=== PATIENT | male | born 1960 | race Caucasian/White ===

== ENCOUNTER → 2017-09-12 09:52 | Outpatient (CLI) | payer MEDICAID, SELFPAY ==
--- NOTE | 2017-09-12 10:00 | ECHOD_ITS ---
Reason For Study: PALPITATIONS Procedure This was a 2D Doppler, Color Flow transthoracic echocardiogram. Exam performed in department. Left Ventricle Normal size and thickness. The estimated ejection fraction is 45 %. Stage 1 diastolic dysfunction. There is mild to moderate global hypokinesis of the left ventricle. Right Ventricle Normal size and thickness. Normal systolic function. Atria Normal left atrium. Normal right atrium. Normal atrial septum. Mitral Valve The mitral valve is structurally normal. No prolapse or stenosis seen. Tricuspid Valve Normal tricuspid valve. Mild (1+) tricuspid valve insufficiency. Right ventricular systolic pressure estimated to be 21 mmHg. Aortic Valve Normal aortic valve. Trisinus/trileaflet aortic valve. Pulmonic Valve Normal pulmonic valve. Great Vessels Normal aortic root. Normal arch. Normal inferior vena cava. Inferior vena cava collapse with sniff. Pericardium/Pleural No pericardial effusion. MMode/2D Measurements & Calculations LVIDd: 4.9 cm IVSd: 0.75 cm LA dimension: 3.2 cm LVIDs: 3.9 cm LVPWd: 0.85 cm RVDd: 3.4 cm FS: 20.0 % LAV(MOD-bp): 29.5 ml LA A4 area: 10.2 cm2 RA A4 area: 9.6 cm2 LAV(MOD-bp) Indexed: 15.8 ml/m2 LAV(MOD-sp2): 41.3 ml LAV(MOD-sp4): 18.9 ml Doppler Measurements & Calculations MV E max dannie: 56.8 cm/sec Ao V2 max: 96.2 cm/sec LV V1 max: 89.6 cm/sec MV A max dannie: 47.1 cm/sec Ao max P.7 mmHg LV V1 max P.2 mmHg MV E/A: 1.2 PA V2 max: 96.1 cm/sec TR max dannie: 206.5 cm/sec TR max P.1 mmHg Interpretation Summary The estimated ejection fraction is 45 %. Stage 1 diastolic dysfunction. There is mild to moderate global hypokinesis of the left ventricle. Mild (1+) tricuspid valve insufficiency. Right ventricular systolic pressure estimated to be 21 mmHg. There is no comparison study available. Ordering Physician: Jared Gonzalez Referring Physician: [facility] Gloria Calle Performed By: Juana Piedra, CONNIE, RVT
== END ==
PROVIDERS: Family Provider Nurse Practitioner Family; PCP Nurse Practitioner Family; Visit Provider Internal Medicine Cardiovascular Disease
DX: R00.2 Palpitations (principal); Z72.0 Tobacco use
CPT/HCPCS: 93306

== ENCOUNTER → 2017-10-05 13:16 | Outpatient (CLI) | payer MEDICAID, SELFPAY ==
--- NOTE | 2017-10-05 13:17 | STE_ITS ---
Reason For Study: Chest Pain Stress Results Protocol: Jamie Protocol Maximum Predicted HR: 164 bpm Target HR: 139 bpm% Max imum Predicted HR: 101 % DurationHeart Rate Stage (mm:ss) (bpm) BP Baseline 66 138/94 Jamie Protocol Stage I 3:00 13 0 148/90 Jamie Protocol Stage II 3:00 16 6 172/92 Recovery 90 128/86 Stress Duration: 6:00 mm:ss Maximum Stress HR: 166 bpmM ETS: 7 Baseline Echocardiogram Findings The estimated ejection fraction is 65 %. Stress Echo Wall motion Data Resting WMIntermediate WMStress WM Resting Wall Motion Wall Motion Stress No regional wall motion No regional wall motion abnormalities noted. abnormalities noted. EKG Data Normal intervals are noted. The patient exercised according to the regular Jamie protocol for a total duration of 6:00. The maximum heart rate attained was 166 beats per minute. This was 101% of maximum predicted heart rate. The patient exercised into stage 3 of the Jamie protocol. During stress, there were no ST or T wave changes noted to suggest ischemia. No clinical angina was noted. Interpretation Summary The estimated ejection fraction is 65 %. Normal adequate treadmill echocardiogram. Negative for ischemia by EKG and echocardiographic criteria. No anginal symptoms noted. Rare PACs and PVCs during exercise. Appropriate blood pressure response to exercise. Below average exercise capacity for age. Final LVEF is 75%. Test terminated due to dyspnea. Patient tolerated procedure well. No complications. Ordering Physician: Jared Gonzalez Referring Physician: [facility] [place] Performed By: Juana Piedra, CONNIE, RVT
== END ==
PROVIDERS: Visit Provider Internal Medicine Cardiovascular Disease
DX: R07.9 Chest pain, unspecified (principal); R00.2 Palpitations; I42.9 Cardiomyopathy, unspecified; E04.1 Nontoxic single thyroid nodule; Z72.0 Tobacco use
CPT/HCPCS: 93017; 93350

== ENCOUNTER 2017-10-13 08:49 | Emergency (ER) | payer MEDICAID, SELFPAY ==
[2017-10-13 08:50] VITALS: BP 129/89; PULSE 76; RESP 14; TEMP 37.5; O2SAT 100; BMI 23.8
--- NOTE | 2017-10-13 09:08 | EKG12_ITS ---
Test Reason : CP Blood Pressure : / mmHG Vent. Rate : 067 BPM Atrial Rate : 067 BPM P-R Int : 168 ms QRS Dur : 090 ms QT Int : 382 ms P-R-T Axes : 067 044 052 degrees QTc Int : 403 ms Normal sinus rhythm with sinus arrhythmia Normal ECG Confirmed by RODO MELO, SANGITA ([id number]), art editor CHAS GARCIA ([id number]) on 10/16/2017 3:53:00 PM Referred By: BROOKE Confirmed By:SANGITA KOEHLER MD
[2017-10-13 09:17] LABS: Absolute Lymphocyte Count 1.35 X10^3/ul (0.83-4.51); Absolute Neutrophil Count 3.5 X10^3/uL (2.0-7.7); Basophil# 0.04 X10^3/uL; Basophil% 0.7 % (0-1); Eosinophil# 0.33 X10^3/uL; Eosinophils% 5.7 % (0-5); Hematocrit 47.1 % (40-54); Hemoglobin 16.1 g/dl (13.0-16.5); Lymphocyte # 1.35 X10^3/ul (4.0); Lymphocyte % 23.4 % (19-41); Mean Corp Hgb Conc 34.2 g/gl (32-36); Mean Corpuscular Hgb 29.7 pg (27.0-32.0); Mean Corpuscular Volume 86.9 fL (80-94); Mean Platelet Vol. 11.7 fl (6.2-12.0); Monocyte# 0.51 X10^3/uL; Monocyte% 8.8 % (0-10); Neutrophil # 3.54 X10^3/uL (2.7-7.7); Neutrophil % 61.2 % (47-70); POSITIVE COUNT NO; POSITIVE DIFFERENTIAL NO; POSITIVE MORPHOLOGY NO; Platelet Count 138 K/mm3 (150-450); RBC Distribution Width CV 13.4 % (11.6-14.6); RBC Distribution Width SD 42.3 fl (35.1-43.9); Red Blood Count 5.42 M/mm3 (4.6-6.2); White Blood Count 5.8 K/mm3 (4.4-11.0)
[2017-10-13 09:19] VITALS: O2SAT 100
[2017-10-13] MEDS: Aspirin 81 MG TAB.CHEW 324 MG PO (09:21)
[2017-10-13] MEDS: 0.9% Normal Saline 1,000 ML 150 ML IV (09:22)
[2017-10-13 09:35] LABS: Anion Gap 9 (5-15); BUN 15 mg/dL (7-18); BUN/Creat Ratio 15.5 RATIO (10-20); Chloride 105 mmol/L (98-107); Creatinine, Serum 0.97 mg/dL (0.70-1.30); EST Glomerular Filtration Rate 85 mL/min (>60); Est Glom Filt Rate - Afr Amer 103 mL/min (>60); Estimated Creatinine Clearance 82.27 ml/min; Glucose 95 mg/dL (74-106); Potassium 3.2 mmol/L (3.5-5.1); Sodium Level 140 mmol/L (136-145)
--- NOTE | 2017-10-13 09:42 | ED.RN ---
PT REFUSED HIS XRAY STATING HE IS CONCERNED THAT THE RADIATION WILL CAUSE PROBLEMS WITH HIS THYROID. HE HAS READ THAT IT CAN DO THAT. PHYSICIAN IS AWARE
[2017-10-13 10:09] VITALS: BP 131/84; PULSE 61; RESP 15; O2SAT 100
[2017-10-13 10:55] LABS: AST(SGOT) 24 U/L (15-37); Alanine Aminotransfer ALT/SGPT 35 U/L (16-61); Albumin, Serum 3.8 g/dL (3.2-5.0); Alkaline Phosphatase 89 U/L (45-117); Bilirubin, Direct 0.09 mg/dL (0.00-0.30); Globulin 3.5 g/dL (2.2-4.2); Protein, Total 7.3 g/dL (6.4-8.2)
[2017-10-13 11:23] VITALS: BP 127/87; PULSE 58; RESP 16; O2SAT 100
--- NOTE | 2017-10-13 11:45 | ED.DCSUM_ITS ---
- ER Visit Summary Date of Service: 10/13/17 Chief Complaint: [Chest pain and palpitations] History of Present Illness: The patient is a 57 M [presents to the emergency department with complaint of 2 day history of palpitations and chest discomfort. Patient states oftentimes she will wake up in the morning with a pressure between her shoulder blades and if he stretches that causes him to have palpitations makes him feel lightheaded and dizzy. Patient's had similar symptoms for the last several months and has worn a Holter monitor for 30 days which apparently showed some PACs and PVCs. Patient also had a stress echo on 223 which was normal. Patient states he does not have another follow-up appointment with cardiology until March. Patient denies family history of heart disease. Patient has not had any diagnosed cardiac disease otherwise. Patient denies recent travel or surgery. States that he has a medical book that he has been reading that makes him concerned about having some sort of this arrhythmia that could be life-threatening. Also does describe some exertional dyspnea at times. Patient also concerned about possibility of Lyme disease because he was bitten by a tick a year ago. Also concerned that the symptoms may be related to his gallbladder as he has had intermittent abdominal discomfort that migrates. Patient has had alternating constipation and diarrhea.] Physical Examination: [HEENT-PERRLA, EOMI. Cranial nerves II through XII grossly intact. TMs clear. Mucous membranes moist. No adenopathy. Cardiovascular-regular rate and rhythm without murmur or ectopy Lungs-clear to auscultation, chest wall stable without crepitus or subcu emphysema Abdomen-normoactive bowel sounds, soft, nontender, no rebound or rigidity, no peritoneal signs. Extremities-intact ?4, normal range of motion, normal pulses, atraumatic] Test Results: [EKG obtained arrival showed a sinus rhythm with a ventricular rate of 67 bpm with no acute ST segment changes. Patient had occasional PACs noted. CBC with it was normal. Chemistry showed a slightly depressed potassium at 3.2 for which I did write for 40 mEq of potassium chloride p.o. Troponin was less than 0.02. Chest x-ray was refused by the patient as he states he has had multiple chest x-rays and does not want another one.] Emergency Department Course and Treatment: [Patient case was discussed with Dr. Llamas who asked that we do a delta troponin and if negative have patient follow- up as an outpatient with Dr. Gonzalez's office. The troponin was drawn however patient states that his ride has to leave and patient wishes to be discharged. At this point I do not feel the patient is having acute coronary syndrome therefore he will be discharged advised to follow-up with Dr. Gonzalez. I suspect there is a component of anxiety which the patient agrees may be the case.] Treatment Plan: [Patient to follow-up with cardiology. Patient will be given a prescription for Ativan as needed.] Disposition: [Discharged to home in stable condition. Patient advised to return if worsening symptoms.] Impression: [Chest pain-etiology uncertain Palpitations Anxiety] This note was generated with [employer] dictation software. It may contain incorrect words, spelling, and punctuation that were not noted in review of the chart prior to signing ED Disposition - Plan for ED Patient: Chief Complaint: Chest Pain Referrals: Caroline Calle,Gloria De La Fuente [Primary Care Provider] -
--- NOTE | 2017-10-13 11:46 | ED.DEP ---
ED Disposition - Plan for ED Patient: Chief Complaint: Chest Pain Instructions: ED Chest Pain Atypical Unkn Cause, ED Stress React, ED Palpitations Prescriptions: Lorazepam [Ativan] 1 mg PO TID PRN #10 tab PRN Reason: Anxiety Referrals: Gloria Mendoza [Primary Care Provider] - Jared Gonzalez MD [STAFF PHYSICIAN] - 5-7 Days
[2017-10-13 12:00] VITALS: BP 130/87; BP 130/93; PULSE 59; RESP 16; O2SAT 100
== END 2017-10-13 12:03 | disposition home or self-care (01) ==
LOC: ED 09:32
PROVIDERS: Emergency Provider Emergency Medicine
DX: R07.9 Chest pain, unspecified (principal); R00.2 Palpitations; F41.9 Anxiety disorder, unspecified; E87.6 Hypokalemia; I49.3 Ventricular premature depolarization; Z87.891 Personal history of nicotine dependence
CPT/HCPCS: 36415; 80048; 80076; 84484; 85025; 93005; 96360; 96361; 99284; A4216

== ENCOUNTER 2017-10-15 11:52 | Emergency (ER) | payer MEDICAID, SELFPAY ==
[2017-10-15 11:53] VITALS: BP 129/88; PULSE 64; RESP 14; TEMP 36.4; O2SAT 100; BMI 23.9
--- NOTE | 2017-10-15 12:19 | EKG12_ITS ---
Test Reason : CP Blood Pressure : / mmHG Vent. Rate : 066 BPM Atrial Rate : 066 BPM P-R Int : 164 ms QRS Dur : 088 ms QT Int : 396 ms P-R-T Axes : 071 046 066 degrees QTc Int : 415 ms Normal sinus rhythm Normal ECG Confirmed by RODO MELO, SANGITA ([id number]), publication editor CHAS GARCIA ([id number]) on 10/16/2017 2:29:46 PM Referred By: GERALDINE/MANISHA Confirmed By:SANGITA KOEHLER MD
--- NOTE | 2017-10-15 12:23 | ED.VISSUMM ---
- ER Visit Summary Date of Service: 10/15/17 Chief Complaint: Chest pain, palpitations History of Present Illness: The patient is a 57 M presenting with chest pain, palpitations. Patient states that this began approximately an hour ago. He states he had a euphoria come over him. He states he developed pain in his abdomen that went into his chest. He complains of palpitations. He was seen in the ED 3 days ago for similar complaints. He states the palpitations have been persistent since that time. Denies caffeine use. He states he has had multiple ED visits for chest pain. He had a stress echo on October 05, 2017 which was unremarkable. He was diagnosed with anxiety. He was given a prescription for Ativan but has not taken it as he states he was scared to take this medication. He is a former smoker. History of hyperlipidemia. Denies PE/DVT risk factors. Physical Examination: Vitals are stable. Patient is afebrile. Alert no acute distress. HEENT exam is unremarkable. Neck is supple. Lungs are clear and equal bilaterally. Heart is regular rate and rhythm. Abdomen is soft nontender nondistended. No guarding or rebound. Extremities are unremarkable. Skin is warm and dry. No focal neurologic deficit. Anxious Remainder of exam is unremarkable. Emergency Department Course and Treatment: EKG is sinus rhythm rate of 66 unchanged from previous. CBC chemistries unremarkable. Lipase is normal. Troponin is negative. D-dimer is normal. TSH is normal. Repeat troponin was also normal. Patient took his home dose of Ativan while in the emergency department with improvement. He declined chest x-ray. He is resting comfortably in the ED. He is advised to follow-up with his primary care physician. Advised return to ED if worsening complaints. Disposition: Discharge home Impression: Atypical chest pain, palpitations This note was generated with [employer] dictation software. It may contain incorrect words, spelling, and punctuation that were not noted in review of the chart prior to signing ED Disposition - Plan for ED Patient: Chief Complaint: Chest Pain Referrals: Gloria Mendoza [NON-STAFF] -
--- NOTE | 2017-10-15 12:27 | ED.DCSUM_ITS ---
- ER Visit Summary Date of Service: 10/15/17 Chief Complaint: Chest pain, palpitations History of Present Illness: The patient is a 57 M presenting with chest pain, palpitations. Patient states that this began approximately an hour ago. He states he had a euphoria come over him. He states he developed pain in his abdomen that went into his chest. He complains of palpitations. He was seen in the ED 3 days ago for similar complaints. He states the palpitations have been persistent since that time. Denies caffeine use. He states he has had multiple ED visits for chest pain. He had a stress echo on October 05, 2017 which was unremarkable. He was diagnosed with anxiety. He was given a prescription for Ativan but has not taken it as he states he was scared to take this medication. He is a former smoker. History of hyperlipidemia. Denies PE/ DVT risk factors. Physical Examination: Vitals are stable. Patient is afebrile. Alert no acute distress. HEENT exam is unremarkable. Neck is supple. Lungs are clear and equal bilaterally. Heart is regular rate and rhythm. Abdomen is soft nontender nondistended. No guarding or rebound. Extremities are unremarkable. Skin is warm and dry. No focal neurologic deficit. Anxious Remainder of exam is unremarkable. Emergency Department Course and Treatment: EKG is sinus rhythm rate of 66 unchanged from previous. CBC chemistries unremarkable. Lipase is normal. Troponin is negative. D-dimer is normal. TSH is normal. Repeat troponin was also normal. Patient took his home dose of Ativan while in the emergency department with improvement. He declined chest x-ray. He is resting comfortably in the ED. He is advised to follow-up with his primary care physician. Advised return to ED if worsening complaints. Disposition: Discharge home Impression: Atypical chest pain, palpitations This note was generated with [employer] dictation software. It may contain incorrect words, spelling, and punctuation that were not noted in review of the chart prior to signing ED Disposition - Plan for ED Patient: Chief Complaint: Chest Pain Referrals: Gloria Mendoza [NON-STAFF] -
[2017-10-15 12:30] LABS: Absolute Neutrophil Count 2.6 X10^3/uL (2.0-7.7); Eosinophil# 0.24 X10^3/uL; Eosinophils% 4.8 % (0-5); Hematocrit 45.8 % (40-54); Hemoglobin 15.9 g/dl (13.0-16.5); Lymphocyte % 33.9 % (19-41); Mean Corp Hgb Conc 34.7 g/gl (32-36); Mean Corpuscular Hgb 29.6 pg (27.0-32.0); Mean Corpuscular Volume 85.3 fL (80-94); Mean Platelet Vol. 12.1 fl (6.2-12.0); Monocyte# 0.41 X10^3/uL; Monocyte% 8.2 % (0-10); Neutrophil # 2.56 X10^3/uL (2.7-7.7); Neutrophil % 50.9 % (47-70); Platelet Count 147 K/mm3 (150-450); RBC Distribution Width CV 13.4 % (11.6-14.6); RBC Distribution Width SD 41.6 fl (35.1-43.9); Red Blood Count 5.37 M/mm3 (4.6-6.2)
[2017-10-15] MEDS: 0.9% Normal Saline 1,000 ML 1000 ML IV (12:30)
[2017-10-15 12:32] LABS: POSITIVE COUNT NO; POSITIVE DIFFERENTIAL NO; POSITIVE MORPHOLOGY NO
[2017-10-15 12:43] LABS: D-Dimer Quantitative (DVT/PE) 0.28 FEU/ug/m (0.27-0.49)
[2017-10-15 12:48] LABS: Anion Gap 9 (5-15); BUN 19 mg/dL (7-18); BUN/Creat Ratio 19.7 RATIO (10-20); Calcium,Total 9.5 mg/dL (8.5-10.1); Chloride 108 mmol/L (98-107); Creatinine, Serum 0.97 mg/dL (0.70-1.30); EST Glomerular Filtration Rate 85 mL/min (>60); Est Glom Filt Rate - Afr Amer 103 mL/min (>60); Estimated Creatinine Clearance 85.03 ml/min; Glucose 91 mg/dL (74-106); Lipase 179 U/L (73-393); Potassium 3.5 mmol/L (3.5-5.1); Sodium Level 140 mmol/L (136-145); Thyroid Stim Hormone (TSH) 1.84 uIU/mL (0.358-3.74)
[2017-10-15 13:13] VITALS: BP 133/86; PULSE 70; RESP 17; O2SAT 100
[2017-10-15 14:00] VITALS: BP 139/79; PULSE 63; RESP 15; O2SAT 99
[2017-10-15 17:00] VITALS: BP 120/87; PULSE 72; RESP 21; O2SAT 95
--- NOTE | 2017-10-15 17:01 | ED.DEP ---
ED Disposition - Plan for ED Patient: Chief Complaint: Chest Pain Instructions: ED Chest Pain Atypical Unkn Cause Referrals: Gloria Mendoza [NON-STAFF] -
== END 2017-10-15 17:11 | disposition home or self-care (01) ==
LOC: ED 12:31
PROVIDERS: Emergency Provider Emergency Medicine; Family Provider Nurse Practitioner Family; PCP Nurse Practitioner Family
DX: R07.89 Other chest pain (principal); R00.2 Palpitations; F41.9 Anxiety disorder, unspecified; Z87.891 Personal history of nicotine dependence; Z79.899 Other long term (current) drug therapy
CPT/HCPCS: 80048; 83690; 84443; 84484; 85025; 85379; 93005; 96360; 99284; A4216

== ENCOUNTER → 2017-10-19 10:12 | Outpatient (CLI) | payer MEDICAID, SELFPAY ==
[2017-10-19 11:36] LABS: Anion Gap 5 (5-15); BUN 12 mg/dL (7-18); BUN/Creat Ratio 11.9 RATIO (10-20); Calcium,Total 8.9 mg/dL (8.5-10.1); Chloride 110 mmol/L (98-107); Creatinine, Serum 1.01 mg/dL (0.70-1.30); EST Glomerular Filtration Rate 81 mL/min (>60); Est Glom Filt Rate - Afr Amer 98 mL/min (>60); Glucose 84 mg/dL (74-106); Magnesium 2.2 mg/dL (1.6-2.6); Potassium 3.8 mmol/L (3.5-5.1); Sodium Level 142 mmol/L (136-145)
== END ==
PROVIDERS: Family Provider Nurse Practitioner Family; PCP Nurse Practitioner Family; Visit Provider Internal Medicine Cardiovascular Disease
DX: E04.1 Nontoxic single thyroid nodule (principal); R07.9 Chest pain, unspecified; I42.9 Cardiomyopathy, unspecified; R00.2 Palpitations; Z72.0 Tobacco use
CPT/HCPCS: 36415; 80048; 83735

== ENCOUNTER 2017-10-20 12:20 | Emergency (ER) | payer MEDICAID, SELFPAY ==
[2017-10-20 12:21] VITALS: BP 128/87; PULSE 67; RESP 16; TEMP 36.9; O2SAT 100; BMI 23.8
[2017-10-20 12:33] VITALS: BP 139/90; PULSE 64; RESP 22; O2SAT 100
--- NOTE | 2017-10-20 12:47 | EKG12_ITS ---
Test Reason : PALPITATIONS Blood Pressure : / mmHG Vent. Rate : 065 BPM Atrial Rate : 065 BPM P-R Int : 158 ms QRS Dur : 088 ms QT Int : 396 ms P-R-T Axes : 040 021 033 degrees QTc Int : 411 ms Normal sinus rhythm Normal ECG Confirmed by SANGITA KOEHLER MD ([id number]), manager editorial CHAS GARCIA ([id number]) on 10/22/2017 3:04:40 PM Referred By: Confirmed By:SANGITA KOEHLER MD
--- NOTE | 2017-10-20 12:50 | RAD_ITS ---
STUDY: X-RAY CHEST REASON FOR EXAM: Male, 57 years old. Palpitations. TECHNIQUE: Single AP portable view of the chest. COMPARISON: September 05, 2017. FINDINGS: Cardiac monitoring leads are present. The lungs are clear and expanded. There is no demonstrated pleural abnormality. Normal size heart. Normal mediastinum and katie. There is prominence of the pulmonary hilar arteries without peripheral pulmonary vascular congestion. There is atherosclerotic calcification of the aortic arch with tortuosity. Normal visualized thoracic spine. Normal visualized ribs, clavicles, and shoulders. There is no demonstrated abnormality of the visualized soft tissue structures of the upper abdomen. RAD/Chest 1 View (Portable) IMPRESSION: No radiographic evidence of acute cardiopulmonary disease. Electronically Signed: Carolina Tinajero MD at 13:22 EST , Service support ,
[2017-10-20] MEDS: Aspirin 81 MG TAB.CHEW 324 MG PO (13:07)
[2017-10-20 13:23] LABS: Absolute Neutrophil Count 2.8 X10^3/uL (2.0-7.7); Basophil# 0.03 X10^3/uL; Basophil% 0.6 % (0-1); Eosinophils% 6.4 % (0-5); Hematocrit 45.5 % (40-54); Hemoglobin 15.6 g/dl (13.0-16.5); Lymphocyte % 25.5 % (19-41); Mean Corp Hgb Conc 34.3 g/gl (32-36); Mean Corpuscular Hgb 29.7 pg (27.0-32.0); Mean Corpuscular Volume 86.7 fL (80-94); Mean Platelet Vol. 11.8 fl (6.2-12.0); Monocyte% 8.5 % (0-10); Neutrophil # 2.77 X10^3/uL (2.7-7.7); Platelet Count 170 K/mm3 (150-450); RBC Distribution Width CV 13.3 % (11.6-14.6); Red Blood Count 5.25 M/mm3 (4.6-6.2); White Blood Count 4.7 K/mm3 (4.4-11.0)
[2017-10-20 13:25] LABS: POSITIVE COUNT NO; POSITIVE DIFFERENTIAL NO; POSITIVE MORPHOLOGY NO
[2017-10-20 13:41] LABS: Anion Gap 7 (5-15); BUN 10 mg/dL (7-18); BUN/Creat Ratio 11.4 RATIO (10-20); Calcium,Total 8.9 mg/dL (8.5-10.1); Chloride 109 mmol/L (98-107); Creatinine, Serum 0.88 mg/dL (0.70-1.30); EST Glomerular Filtration Rate 95 mL/min (>60); Est Glom Filt Rate - Afr Amer 116 mL/min (>60); Estimated Creatinine Clearance 90.68 ml/min; Glucose 77 mg/dL (74-106); Sodium Level 141 mmol/L (136-145)
[2017-10-20 14:36] VITALS: BP 121/83; PULSE 63; RESP 18; O2SAT 98
--- NOTE | 2017-10-20 15:11 | ED.VISSUMM ---
- ER Visit Summary Date of Service: 10/20/17 Chief Complaint: [] Chest palpitations History of Present Illness: The patient is a 57 M [] ending of palpitations beginning prior to arrival. Patient feels like had a low heart rate. Reports she has had palpitations since last May. He reports he has a scheduled angioplasty with Dr. Gonzalez in 4 days. He denies any chest pain. In review of his records he has been here numerous times for similar symptoms. He does report a history of panic attacks but does appear anxious today however he denies that the symptoms are related to a panic attack. Denies shortness of breath. Denies abdominal pain. Denies fevers. Reports he has a normal stress echo in the last year. Physical Examination: [] Afebrile, vital signs stable. Cardiovascular exam is regular rate and rhythm. Lungs are clear to auscultation. Abdomen is soft and nontender. No lower extremity edema. Test Results: [] Chest x-ray negative. EKG shows normal sinus rhythm rate of 65 without ischemia or ectopy. Unchanged from previous EKG. CBC, BMP, troponin normal. Emergency Department Course and Treatment: [] Patient evaluated for palpitations and no obvious or life-threatening etiology was identified. I encourage the patient to keep his scheduled intervention with Dr. Gonzalez and return if symptoms worsen/recur. Treatment Plan: [] Follow-up with cardiology. Disposition: [] Discharge, stable. Impression: [] Palpitations This note was generated with [employer] dictation software. It may contain incorrect words, spelling, and punctuation that were not noted in review of the chart prior to signing ED Disposition - Plan for ED Patient: Chief Complaint: Palpitations Referrals: Lianey Ag NP-C [Primary Care Provider] -
--- NOTE | 2017-10-20 15:14 | ED.DEP ---
ED Disposition - Plan for ED Patient: Disposition: Home or Assisted Living Chief Complaint: Palpitations Instructions: ED Palpitations Referrals: Lainey Ag NP-Machelle [Primary Care Provider] - Jared Gonzalez MD [STAFF PHYSICIAN] -
[2017-10-20 15:16] VITALS: BP 117/81; PULSE 58; RESP 16; O2SAT 98
--- NOTE | 2017-10-20 15:22 | ED.RN ---
support provided to pt regarding keeping procedure for sunday. did not talk to Dr. Gonzalez at this time. informed pt we are here at all times with any HR concerns he can be seen.
== END 2017-10-20 15:25 | disposition home or self-care (01) ==
PROVIDERS: Emergency Provider Emergency Medicine; Family Provider Nurse Practitioner Family; PCP Nurse Practitioner Family
DX: R00.2 Palpitations (principal); F41.0 Panic disorder [episodic paroxysmal anxiety]; Z72.0 Tobacco use; Z79.899 Other long term (current) drug therapy
CPT/HCPCS: 71045; 80048; 84484; 85025; 93005; 99285; A4216

== ENCOUNTER → 2017-10-24 08:28 | Day surgery (SDC) | payer MEDICAID, SELFPAY ==
[2017-10-23 11:31] VITALS: BMI 23.9
--- NOTE | 2017-10-24 12:42 | CL.D_ITS ---
Patient Name: LOYD GUDINO Study Date: 10/24/2017 Performing: Loyd Gonzalez MD Ht: 68.89 inches 175 cm : 1960 Wt: 160.94 lbs 73 kg Age: 57 Gender: male BSA: 1.88 PROCEDURE(S) PERFORMED AB26-TPE/COR/LV CLINICAL PROFILE AND INDICATIONS INDICATIONS: Chest-Pain syndrome with equivocal non-invasive testing Stress/Imaging Stress Echocardiogram: Yes Result: NegativeStress Echocardiogram: Negative Angina Classification Anginal Classification w/in 2 Weeks: CCS IV CAD Presentations: Symptom unlikely to be ischemic. Comorbidities/Risk Factors: Current/Recent Smoker (< 1year) Cerebrovascular Disease CONCLUSIONS Normal coronary arteries Normal LV size, wall motion,and systolic function RECOMMENDATIONS d/c plavix, manual sheath removal, start inderal LA 60mg po daily for palps, atypical CP and anxiety. DESCRIPTION OF PROCEDURE The patient arrived to the procedure lab. The risks and benefits of the procedure as well as a full d escription of our services here and current unavailability of surgical backup were fully explained to the patient and/or their significant other prior to the catheterization. The Timeout was completed, verifying the correct patient and procedure. The patient's procedural site was prepped and draped in the usual fashion. Local anesthetic was given subcutaneously to right groin region with Lidocaine 2%. Using a modified Seldinger technique, arterial access was obtained via the right femoral artery, a 4 Fr sheath was inserted Left Coronary Artery selective angiography was performed in multiple views us ing a 4 Fr. JL5 catheter. Right Coronary Artery selective angiography was then performed in multiple views using a 4 Fr. 3DRC catheter. Left Ventriculography was performed in MARTINEZ projection using a 4 Fr . Pigtail catheter. LV to AO pullback pressures were then recorded.The arterial sheath was pulled and manual compression applied until hemostasis is achieved. CORONARY ANGIOGRAPHY DOMINANCE: Left Dominant LEFT HEART ASSESSMENT Left Ventricular Ejection Fraction: by LV Gram 65 % Normal LV wall motion Normal Left Ventricular systolic function Normal Left Ventricular systolic function Normal Left Ventricular End Diastolic Pressure LEFT MAIN: Angiographically normal LEFT ANTERIOR DECENDING ARTERY: Angiographically normal CIRCUMFLEX ARTERY: Angiographically normal RIGHT CORONARY ARTERY: Angiographically normal COMPLICATIONS No Complications PROCEDURE MEDICATIONS Versed 1 mg IV Oxygen: 2 L/min via nasal cannula SUMMARY OF HEMODYNAMIC DATA Time AIR REST ECG 09:01:20 AO 117/78 (96) SA 09:51:39 LV 125/-14, 6 09:56:50 LV 127/-15, 4 09:56:57 LVp 139/-14, 3 09:57:03 AOp 128/64 (90) 09:57:09 Signed By Loyd Gonzalez MD On 10/24/2017 10:11:29 Loyd Gonzalez MD
== END ==
PROVIDERS: Family Provider Nurse Practitioner Family; PCP Nurse Practitioner Family; Visit Provider Internal Medicine Cardiovascular Disease
DX: R07.89 Other chest pain (principal); R00.2 Palpitations; Z87.820 Personal history of traumatic brain injury; Z87.891 Personal history of nicotine dependence; Z79.899 Other long term (current) drug therapy
CPT/HCPCS: 93458; 99152; J7040; C1769; C1894; Q9967

== ENCOUNTER 2017-12-10 02:38 | Emergency (ER) | payer MEDICAID, SELFPAY ==
[2017-12-10 02:40] VITALS: BP 138/83; PULSE 61; RESP 12; TEMP 36.6; O2SAT 100; BMI 25.6
--- NOTE | 2017-12-10 02:44 | EKG12_ITS ---
Test Reason : CP Blood Pressure : / mmHG Vent. Rate : 059 BPM Atrial Rate : 059 BPM P-R Int : 168 ms QRS Dur : 092 ms QT Int : 400 ms P-R-T Axes : 041 035 045 degrees QTc Int : 396 ms Sinus bradycardia Otherwise normal ECG Confirmed by RODO MELO, SANGITA ([id number]), legal editor CHAS GARCIA ([id number]) on 12/11/2017 2:13:52 PM Referred By: TIMUR Confirmed By:SANGITA KOEHLER MD
--- NOTE | 2017-12-10 02:44 | RAD_ITS ---
STUDY: X-RAY CHEST REASON FOR EXAM: Male, 57 years old. Abnormal heartbeats for 3 days. TECHNIQUE: Single AP portable view of the chest. COMPARISON: 10/20/2017. FINDINGS: The lungs are clear and mildly under expanded. There is no demonstrated pleural abnormality. Normal size heart. Normal mediastinum and katie. Normal visualized pulmonary arteries. Normal visualized aortic arch and descending thoracic aorta. Normal visualized thoracic spine. Normal visualized ribs, clavicles, and shoulders. There is no demonstrated abnormality of the visualized soft tissue structures of the upper abdomen. RAD/Chest 1 View (Portable) IMPRESSION: No evidence for acute cardiopulmonary pathology. Electronically Signed: Bartolome Tapia MD at 3:41 EDT , Service support ,
--- NOTE | 2017-12-10 02:44 | NURSING ---
CALLED FOR EKG PER RN REQUEST, PULLED OLD EKG'S FOR
[2017-12-10] MEDS: 0.9% Normal Saline 1,000 ML 150 ML IV (03:01)
[2017-12-10 03:02] LABS: Absolute Neutrophil Count 3.3 X10^3/uL (2.0-7.7); Basophil% 1.6 % (0-1); Eosinophil# 0.44 X10^3/uL; Eosinophils% 7.1 % (0-5); Hematocrit 46.4 % (40-54); Hemoglobin 15.7 g/dl (13.0-16.5); Lymphocyte % 27.2 % (19-41); Mean Corp Hgb Conc 33.8 g/gl (32-36); Mean Corpuscular Hgb 29.6 pg (27.0-32.0); Mean Corpuscular Volume 87.4 fL (80-94); Mean Platelet Vol. 11.8 fl (6.2-12.0); Monocyte# 0.71 X10^3/uL; Monocyte% 11.4 % (0-10); Neutrophil # 3.28 X10^3/uL (2.7-7.7); Neutrophil % 52.5 % (47-70); Platelet Count 151 K/mm3 (150-450); RBC Distribution Width CV 13.1 % (11.6-14.6); RBC Distribution Width SD 42.1 fl (35.1-43.9); Red Blood Count 5.31 M/mm3 (4.6-6.2); White Blood Count 6.2 K/mm3 (4.4-11.0)
[2017-12-10 03:09] LABS: POSITIVE COUNT NO; POSITIVE DIFFERENTIAL NO; POSITIVE MORPHOLOGY NO
[2017-12-10 03:22] LABS: Anion Gap 7 (5-15); BUN 18 mg/dL (7-18); BUN/Creat Ratio 20.4 RATIO (10-20); Chloride 107 mmol/L (98-107); Creatinine, Serum 0.88 mg/dL (0.70-1.30); EST Glomerular Filtration Rate 94 mL/min (>60); Est Glom Filt Rate - Afr Amer 114 mL/min (>60); Estimated Creatinine Clearance 87.63 ml/min; Glucose 75 mg/dL (74-106); Sodium Level 143 mmol/L (136-145); Thyroid Stim Hormone (TSH) 4.21 uIU/mL (0.358-3.74)
--- NOTE | 2017-12-10 03:52 | ED.DCSUM_ITS ---
- ER Visit Summary Date of Service: 12/10/17 Chief Complaint: Palpitations History of Present Illness: The patient is a [address] Gonzalez and Dr. Corona. He reports that he has had palpitations ever since June 2017. He has had extensive evaluation for this including a Holter monitor and a heart catheterization. He reports that they worsened again 3 days ago. He states they are intermittent and lasts seconds to minutes at a time. Reports that he has had a continuous substernal tightness for the past 3 days. States this pain is 6 out of 10 with exertion or rolling over and 2 out of 10 at rest. He complains of mild shortness of breath. Denies any associated nausea, vomiting, or diaphoresis. Physical Examination: Vitals: Stable. Afebrile. General: Well-nourished and well-developed. Head: Normocephalic atraumatic. Neck: Supple, no lymphadenopathy. No JVD. Nontender. Cardiovascular: Regular rate and rhythm. No murmurs. Respiratory: No respiratory distress. Clear to auscultation bilaterally. Abdominal: Soft, nontender, nondistended, normal bowel sounds. No guarding, rebound, or peritoneal signs. Back: Nontender. Extremities: Nontender, no edema. Skin: Normal color, no rash. Neurologic: Alert and oriented ?3. Cranial nerves II through XII are intact. Normal strength and sensation. Psych: Normal affect. Test Results: CBC is remarkable monocytes of 11, eosinophils of 7, basophils of 2. Chem-7 is normal. Troponin is negative. TSH is 4.21. EKG sinus bradycardia [address] changes. It is unchanged from last month. Chest x-ray shows a poor inspiration but is otherwise normal. Emergency Department Course and Treatment: Patient on the monitor here has not had any dysrhythmia. I looked at his Holter report which was unremarkable. His heart catheterization October 24, 2017 shows no coronary artery disease. He had an ejection fraction is 65%. Treatment Plan: I had a prolonged discussion with patient about his symptoms. I do not think that he requires hospitalization. He will be discharged instructions to follow-up with Dr. Corona in 1-2 days if not improving. Follow- up Dr. Gonzalez as previously scheduled. Return to the emergency department for any worsening symptoms. Disposition: To home in improved and stable condition. Impression: 1. Palpitations. This note was generated with [employer] dictation software. It may contain incorrect words, spelling, and punctuation that were not noted in review of the chart prior to signing ED Disposition - Plan for ED Patient: Disposition: Home or Assisted Living Chief Complaint: Palpitations Instructions: ED Palpitations Referrals: Luis Alberto Corona MD [Primary Care Provider] - 1-2 Days if not improving Jared Gonzalez MD [STAFF PHYSICIAN] -
[2017-12-10 03:58] VITALS: BP 116/76; PULSE 60; RESP 14; O2SAT 99
== END 2017-12-10 04:02 | disposition home or self-care (01) ==
LOC: ED 03:30
PROVIDERS: Emergency Provider Emergency Medicine; Family Provider Family Medicine; PCP Family Medicine
DX: R00.2 Palpitations (principal); Z87.891 Personal history of nicotine dependence; Z79.899 Other long term (current) drug therapy
CPT/HCPCS: 71045; 80048; 84443; 84484; 85025; 93005; 96360; 99284; J7030; A4216

== ENCOUNTER → 2017-12-12 08:43 | Outpatient (CLI) | payer MEDICAID, SELFPAY | PROVIDERS: Family Provider Family Medicine; PCP Family Medicine; Visit Provider Internal Medicine Cardiovascular Disease | DX: R00.2 Palpitations (principal) | CPT/HCPCS: 93225; 93226 ==

== ENCOUNTER 2018-11-30 13:45 | Emergency (ER) | payer MEDICAID, SELFPAY ==
[2018-11-30 13:47] VITALS: BP 155/80; PULSE 80; PULSE 86; RESP 17; RESP 19; TEMP 36.2; O2SAT 100; BMI 24.3
--- NOTE | 2018-11-30 14:09 | ED.DCSUM_ITS ---
- ER Visit Summary Date of Service: 11/30/18 Chief Complaint: Back pain History of Present Illness: The patient is a 58 M who has back pain. He said this for a week. He states is improving throughout the week but then he bent over today and now it is worse. Is in the lumbar region. Movement makes it wor se and sitting makes it better. It radiates down the left leg. He tried ibuprofen which was helping until today. He does have a history of prior back pain as well as arthritis. Physical Examination: Vital signs are reviewed. HEENT exam unremarkable. Heart is regular rate and rhythm. Lungs are clear. Abdomen is soft and nontender. Back exam reveals lumbar diffuse paraspinal and spinal tenderness. His neurologic exam including reflexes is normal Test Results: None performed Emergency Department Course and Treatment: Patient's exam is consistent with a strain. I will treat him with Toradol and Norflex here. Naproxen and Flexeril at home. He has no specific bony tenderness. I do not feel imaging is necessary at this time. Treatment Plan: [] Disposition: Discharge Impression: Lumbar strain This note was generated with [employer] dictation software. It may contain incorrect words, spelling, and punctuation that were not noted in review of the chart prior to signing ED Disposition - Plan for ED Patient: Referrals: Luis Alberto Corona MD [Primary Care Provider] -
--- NOTE | 2018-11-30 14:09 | ED.DEP ---
ED Disposition - Plan for ED Patient: Disposition: Home or Assisted Living Instructions: ED Neck Back Pain General Prescriptions: Naproxen [Naprosyn] 500 mg PO BID PRN #20 tab Cyclobenzaprine [Flexeril] 10 mg PO TID PRN #20 tab PRN Reason: Muscle Spasm Referrals: Luis Alberto Corona MD [Primary Care Provider] -
[2018-11-30] MEDS: Ketorolac 60 MG/2 ML Vial IM (14:12)
[2018-11-30] MEDS: Orphenadrine 60 MG/2 ML Ampul IM (14:12)
[2018-11-30] MEDS: oxyCODONE 5 MG Tablet PO (15:38)
[2018-11-30 15:53] VITALS: BP 130/84; PULSE 68; RESP 17
== END 2018-11-30 15:53 | disposition home or self-care (01) ==
LOC: ED 14:43
PROVIDERS: Emergency Provider Emergency Medicine; Family Provider Family Medicine; PCP Family Medicine
DX: S39.012A Strain of muscle, fascia and tendon of lower back, initial encounter (principal); Z72.0 Tobacco use; Z79.82 Long term (current) use of aspirin; X50.9XXA Other and unspecified overexertion or strenuous movements or postures, initial encounter; Y93.89 Activity, other specified; Y92.89 Other specified places as the place of occurrence of the external cause; Y99.8 Other external cause status
CPT/HCPCS: 96372; 99282

== ENCOUNTER 2019-01-15 12:42 | Emergency (ER) | payer MEDICAID, SELFPAY ==
[2019-01-15 12:43] VITALS: BP 155/91; PULSE 62; RESP 17; TEMP 36.4; O2SAT 100; BMI 25.2
--- NOTE | 2019-01-15 13:07 | EKG12_ITS ---
Test Reason : CP Blood Pressure : / mmHG Vent. Rate : 065 BPM Atrial Rate : 065 BPM P-R Int : 162 ms QRS Dur : 092 ms QT Int : 382 ms P-R-T Axes : 061 042 052 degrees QTc Int : 397 ms Normal sinus rhythm Normal ECG Confirmed by DINAH MELO, JESSICA ([id number]), make up editor CHAS GARCIA ([id number] on 01/17/2019 6:38:17 AM Referred By: THI/BROOKE Confirmed By:JESSICA NIX MD
[2019-01-15] MEDS: Aspirin 81 MG TAB.CHEW 324 MG PO (13:27)
[2019-01-15] MEDS: 0.9% Normal Saline 1,000 ML 150 ML IV (13:27)
[2019-01-15 13:42] VITALS: O2SAT 97
[2019-01-15 13:43] VITALS: BP 107/81; PULSE 55; RESP 17; O2SAT 97
--- NOTE | 2019-01-15 13:44 | ED.RN ---
PATIENT REFUSED CHEST X-RAY. NOTIFIED. WILL CONTINUE TO MONITOR.
[2019-01-15 13:49] LABS: Absolute Lymphocyte Count 1.16 X10^3/ul (0.83-4.51); Absolute Neutrophil Count 2.8 X10^3/uL (2.0-7.7); Basophil# 0.04 X10^3/uL; Basophil% 0.9 % (0-1); Eosinophil# 0.14 X10^3/uL; Eosinophils% 3.1 % (0-5); Hematocrit 46.6 % (40-54); Hemoglobin 16.3 g/dl (13.0-16.5); Lymphocyte # 1.16 X10^3/ul (4.0); Lymphocyte % 26.1 % (19-41); Mean Corpuscular Hgb 29.7 pg (27.0-32.0); Mean Platelet Vol. 12.2 fl (6.2-12.0); Monocyte# 0.36 X10^3/uL; Monocyte% 8.1 % (0-10); Neutrophil # 2.75 X10^3/uL (2.7-7.7); Neutrophil % 61.8 % (47-70); Platelet Count 139 K/mm3 (150-450); RBC Distribution Width CV 12.8 % (11.6-14.6); RBC Distribution Width SD 39.6 fl (35.1-43.9); Red Blood Count 5.48 M/mm3 (4.6-6.2); White Blood Count 4.5 K/mm3 (4.4-11.0)
[2019-01-15 13:50] LABS: POSITIVE COUNT NO; POSITIVE DIFFERENTIAL NO; POSITIVE MORPHOLOGY NO
[2019-01-15 14:02] LABS: Anion Gap 6 (5-15); BUN 15 mg/dL (7-18); BUN/Creat Ratio 15.4 RATIO (10-20); Chloride 108 mmol/L (98-107); Creatinine, Serum 0.98 mg/dL (0.70-1.30); D-Dimer Quantitative (DVT/PE) 0.35 FEU/ug/m (0.27-0.49); EST Glomerular Filtration Rate 84 mL/min (>60); Est Glom Filt Rate - Afr Amer 101 mL/min (>60); Estimated Creatinine Clearance 79.49 ml/min; Glucose 104 mg/dL (74-106); Potassium 3.9 mmol/L (3.5-5.1); Sodium Level 140 mmol/L (136-145)
[2019-01-15 15:06] VITALS: BP 120/80; PULSE 53; RESP 18; O2SAT 100
--- NOTE | 2019-01-15 15:28 | ED.VISSUMM ---
- ER Visit Summary Date of Service: 01/15/19 Chief Complaint: [Chest pain] History of Present Illness: The patient is a 59 M [the emergency department chest discomfort at around 11:45 AM. Patient states he just put some laundry into the washer when he developed a tightness in the upper chest radiating to his neck and jaw. Patient felt slightly short of breath with it. He denies any nausea or vomiting. He denies any diaphoresis. Patient had similar episodes in the past. Patient states that he walked 2 miles yesterday and had no problem doing that and had no chest pain or shortness of breath with that. Patient had a heart catheterization 1 year ago that showed normal coronaries. He denies recent travel or surgery. Patient currently not having any chest discomfort. Patient does also describe frequent palpitations and he wore a 30-day event monitor about a year ago that showed frequent PVCs and PACs.] Physical Examination: [HEENT-PERRLA, EOMI. Cranial nerves II through XII grossly intact. TMs clear. Mucous membranes moist. No adenopathy. Cardiovascular-regular rate and rhythm without murmur or ectopy Lungs-clear to auscultation, chest wall stable without crepitus or subcu emphysema Abdomen-normoactive bowel sounds, soft, nontender, no rebound or rigidity, no peritoneal signs. Extremities-intact ?4, normal range of motion, normal pulses, atraumatic] Test Results: [EKG obtained arrival shows sinus rhythm with a ventricular rate of 65 bpm with no acute ST segment changes. CBC with differential was normal. Chemistries normal. Troponin less than 0.05. D-dimer was normal 0.35. Chest [id number] refused.] Emergency Department Course and Treatment: [I discussed case with Dr. Jared Gonzalez who is on for cardiology and were actually performed patient's heart catheterization a year ago. Its believe that it would be highly unlikely that patient would have developed a coronary lesion after 1 year and patient denies any illicit drug use. Is recommended to repeat a delta troponin if normal patient could be safely discharged home. Patient was ordered a delta troponin however he is refusing to wait for the results and states that he feels fine and does not feel like this is his heart. She will follow-up with cardiology as needed.] Treatment Plan: [Follow-up with cardiology in 3 to 5 days. Patient advised to return if worsening pain, increasing shortness of breath, or conditions worsen anyway.] Disposition: [Discharged home in stable condition] Impression: [Chest pain-etiology uncertain] This note was generated with [employer] dictation software. It may contain incorrect words, spelling, and punctuation that were not noted in review of the chart prior to signing ED Disposition - Plan for ED Patient: Referrals: Luis Alberto Corona MD [Primary Care Provider] -
--- NOTE | 2019-01-15 15:32 | ED.DCSUM_ITS ---
- ER Visit Summary Date of Service: 01/15/19 Chief Complaint: [Chest pain] History of Present Illness: The patient is a 59 M [the emergency department chest discomfort at around 11:45 AM. Patient states he just put some laundry into the washer when he developed a tightness in the upper chest radiating to h is neck and jaw. Patient felt slightly short of breath with it. He denies any nausea or vomiting. He denies any diaphoresis. Patient had similar episodes in the past. Patient states that he walked 2 miles yesterday and had no problem doing that and had no chest pain or shortness of breath with that. Patient had a heart catheterization 1 year ago that showed normal coronaries. He denies recent travel or surgery. Patient currently not having any chest discomfort. Patient does also describe frequent palpitations and he wore a 30-day event monitor about a year ago that showed frequent PVCs and PACs.] Physical Examination: [HEENT-PERRLA, EOMI. Cranial nerves II through XII grossly intact. TMs clear. Mucous membranes moist. No adenopathy. Cardiovascular-regular rate and rhythm without murmur or ectopy Lungs-clear to auscultation, chest wall stable without crepitus or subcu emphysema Abdomen-normoactive bowel sounds, soft, nontender, no rebound or rigidity, no peritoneal signs. Extremities-intact ?4, normal range of motion, normal pulses, atraumatic] Test Results: [EKG obtained arrival shows sinus rhythm with a ventricular rate of 65 bpm with no acute ST segment changes. CBC with differential was normal. Chemistries normal. Troponin less than 0.05. D-dimer was normal 0.35. Chest [id number] refused.] Emergency Department Course and Treatment: [I discussed case with Dr. Jared Gonzalez who is on for cardiology and were actually performed patient's heart catheterization a year ago. Its believe that it would be highly unlikely that patient would have developed a coronary lesion after 1 year and patient denies any illicit drug use. Is recommended to repeat a delta troponin if normal patient could be safely discharged home. Patient was ordered a delta troponin however he is refusing to wait for the results and states that he feels fine and does not feel like this is his heart. She will follow-up with cardiology as needed.] Treatment Plan: [Follow-up with cardiology in 3 to 5 days. Patient advised to return if worsening pain, increasing shortness of breath, or conditions worsen anyway.] Disposition: [Discharged home in stable condition] Impression: [Chest pain-etiology uncertain] This note was generated with [employer] dictation software. It may contain incorrect words, spelling, and punctuation that were not noted in review of the chart prior to signing ED Disposition - Plan for ED Patient: Referrals: Luis Alberto Corona MD [Primary Care Provider] -
--- NOTE | 2019-01-15 15:32 | ED.DEP ---
ED Disposition - Plan for ED Patient: Instructions: ED Chest Pain Atypical Unkn Cause Referrals: Luis Alberto Corona MD [Primary Care Provider] - Jared Gonzalez MD [STAFF PHYSICIAN] - 3-5 Days
[2019-01-15 15:41] VITALS: BP 143/91; PULSE 45; RESP 17; O2SAT 100
== END 2019-01-15 15:41 | disposition home or self-care (01) ==
LOC: ED 13:15
PROVIDERS: Emergency Provider Emergency Medicine; Family Provider Family Medicine; PCP Family Medicine
DX: R07.9 Chest pain, unspecified (principal); Z87.891 Personal history of nicotine dependence
CPT/HCPCS: 80048; 84484; 85025; 85379; 93005; 96360; 96361; 99285; J7030; A4216

== ENCOUNTER → 2020-08-18 10:45 | Outpatient (CLI) | payer MEDICAID, SELFPAY ==
[2020-08-12 09:57] VITALS: BMI 23.6
[2020-08-18 10:48] LABS: Bacteria 0 SEEN /hpf (None Seen); Mucous, Urine 0 SEEN /hpf (<or=2+); Red Blood Cells-Urine 0 SEEN /hpf (0-5); Squamous Epithelial Cells - UA 0 SEEN /hpf (0-5)
[2020-08-18 12:56] LABS: ALB/GLOB Ratio 1.1 RATIO (0.9-2.4); AST(SGOT) 21 U/L (15-37); Alanine Aminotransfer ALT/SGPT 37 U/L (16-61); Albumin, Serum 3.6 g/dL (3.2-5.0); Alkaline Phosphatase 90 U/L (45-117); Anion Gap 4 (5-15); BUN 14 mg/dL (7-18); BUN/Creat Ratio 14.1 RATIO (10-20); Calcium,Total 8.7 mg/dL (8.5-10.1); Chloride 108 mmol/L (98-107); Cholesterol 185 mg/dL (200); Creatinine, Serum 0.99 mg/dL (0.70-1.30); EST Glomerular Filtration Rate 82 mL/min (>60); Est Glom Filt Rate - Afr Amer 99 mL/min (>60); Globulin 3.2 g/dL (2.2-4.2); Glucose 86 mg/dL (74-106); High Density Lipoprotein 46 mg/dL; PSA,Total - Annual Screen 3.06 ng/mL (0.00-4.00); Potassium 4.1 mmol/L (3.5-5.1); Protein, Total 6.8 g/dL (6.4-8.2); Sodium Level 140 mmol/L (136-145); Thyroid Stim Hormone (TSH) 1.84 uIU/mL (0.358-3.74); Triglycerides 167 mg/dL; Very Low Density Lipoprotein 33 mg/dL (5-40)
[2020-08-18 13:00] LABS: Erythrocyte Sedimentation Rate 1 mm/hr (0-20)
[2020-08-18 13:06] LABS: Color, Urine Yellow (Yellow); Glucose, Dipstick Normal (Normal); Ketone-Dipstick Negative (Negative); Leukocyte Esterase-Dipstick Negative /ul (Negative); Nitrite-Dipstick Negative (Negative); Occult Blood-Urine Negative /ul (Negative); Protein-Dipstick Negative (Negative); Specific Gravity, Urine 1.015 (1.002-1.030); Urine Bilirubin Dipstick Negative (Negative); Urine Clarity Clear (Clear); Urine Urobilinogen Normal (Normal)
[2020-08-18 13:12] LABS: Absolute Lymphocyte Count 1.44 X10^3/uL (0.83-4.51); Absolute Neutrophil Count 2.4 X10^3/uL (2.0-7.7); Basophil# 0.06 X10^3/uL; Basophil% 1.3 % (0-1); Eosinophil# 0.21 X10^3/uL; Eosinophils% 4.7 % (0-5); Hematocrit 51.5 % (40-54); Hemoglobin 16.9 g/dL (13.0-16.5); Lymphocyte # 1.44 X10^3/ul (4.0); Lymphocyte % 32.4 % (19-41); Mean Corp Hgb Conc 32.8 g/dL (32-36); Mean Corpuscular Hgb 29.1 pg (27.0-32.0); Mean Corpuscular Volume 88.6 fL (80-94); Monocyte# 0.35 X10^3/uL; Monocyte% 7.9 % (0-10); NRBC Flagged by Analyzer 0 % (0-5); Neutrophil # 2.38 X10^3/uL (2.7-7.7); Neutrophil % 53.5 % (47-70); Platelet Count 155 K/mm3 (150-450); RBC Distribution Width CV 12.1 % (11.6-14.6); RBC Distribution Width SD 39.4 fl (35.1-43.9); Red Blood Count 5.81 M/mm3 (4.6-6.2); White Blood Count 4.5 K/mm3 (4.4-11.0)
[2020-08-18 14:28] LABS: White Blood Cells 0-5 SEEN /hpf (0-5)
== END ==
PROVIDERS: PCP Internal Medicine; Referring Provider Internal Medicine; Visit Provider Internal Medicine
DX: G89.29 Other chronic pain (principal); K21.9 Gastro-esophageal reflux disease without esophagitis; M54.9 Dorsalgia, unspecified; N13.8 Other obstructive and reflux uropathy; N40.1 Benign prostatic hyperplasia with lower urinary tract symptoms; R39.198 Other difficulties with micturition; Z13.220 Encounter for screening for lipoid disorders; Z12.5 Encounter for screening for malignant neoplasm of prostate
CPT/HCPCS: 36415; 80053; 80061; 81001; 84153; 84443; 85025; 85652; G0103